=== PATIENT | female | born 1970 | race Caucasian/White ===

== ENCOUNTER 2017-09-27 19:56 | Emergency (ER) | payer MEDICARE, OTHER ==
[~2017-09-27 19:56] MED LIST: ASPI-516 CHEW; HUMALOG SQ; LANTUS2P SQ
[2017-09-27 19:57] VITALS: BP 137/68; PULSE 75; RESP 16; TEMP 97.9; O2SAT 100
[2017-09-27 21:14] VITALS: BP 122/75; PULSE 66; RESP 16; O2SAT 100
[2017-09-27 21:27] VITALS: O2SAT 100
[2017-09-27] MEDS ORDERED: TETANUS/DIPHTHERIA TOXOID ADULT 0.5 ML VIAL IM ONE (21:30)
--- NOTE | 2017-09-27 21:53 | RADRPT ---
EXAM DATE/TIME: 09/27/2017 21:28 [facility] COMPARISON: No previous studies available for comparison. INDICATIONS : Chest pain since yesterday. MEDICAL HISTORY : Cardiovascular disease. Diabetes mellitus type 2. SURGICAL HISTORY : Cholecystectomy. ENCOUNTER: Initial ACUITY: 1 day PAIN SCORE: 2/10 LOCATION: Bilateral chest FINDINGS: A single view of the chest demonstrates the lungs to be symmetrically aerated without evidence of mas s, infiltrate or effusion. Nipple shadows generate nodular densities over each lung base. The cardiom ediastinal contours are unremarkable. Osseous structures are intact. Median sternotomy wires. Old ri ght clavicular fracture. CONCLUSION: Normal examination. Prasanth Cabrera Jr., MD on September 27, 2017 at 21:50 Board Certified Radiologist. This report was verified electronically.
[2017-09-27 21:54] LABS: AUTOMATED NEUTROPHIL # 2.7 TH/MM3 (1.8-7.7); BASOPHIL # 0.1 TH/MM3 (0-0.2); BASOPHIL % 1.1 % (0.0-2.0); EOSINOPHIL # 0.2 TH/MM3 (0-0.4); EOSINOPHIL % 4.3 % (0.0-4.0); HEMATOCRIT 36.3 % (35.0-46.0); HEMO FLAGS DIFF FINAL; LYMPH % 34.6 % (9.0-44.0); LYMPHOCYTE # 1.9 TH/MM3 (1.0-4.8); MEAN CELL VOLUME 91.2 FL (80.0-100.0); MEAN CORPUSCULAR HEMOGLOBIN 30.9 PG (27.0-34.0); MEAN CORPUSCULAR HGB CONC 33.9 % (32.0-36.0); MONO % 10.2 % (0.0-8.0); NEUT % 49.8 % (16.0-70.0); PLATELET COUNT 220 TH/MM3 (150-450); RED BLOOD COUNT 3.98 MIL/MM3 (4.00-5.30); RED CELL DISTRIBUTION WIDTH 12.1 % (11.6-17.2); WHITE BLOOD COUNT 5.5 TH/MM3 (4.0-11.0)
[2017-09-27 21:55] LABS: BLOOD, URINE NEG (NEG); GLUCOSE,URINE NEG (NEG); KETONE, URINE NEG (NEG); NITRITE,URINE NEG (NEG); PH, URINE 7.5 (5.0-8.5); SQUAMOUS EPITHELIAL CELL URINE <1 /hpf (0-5); URINE COLOR LIGHT-YELLOW (YELLW/STRAW)
[2017-09-27 21:56] LABS: COMMENT (UR) CULT NOT INDICATED; CULTURE IF INDICATED CULT NOT INDICATED
--- NOTE | 2017-09-27 22:00 | RADRPT ---
EXAM DATE/TIME: 09/27/2017 21:36 [facility] COMPARISON: No previous studies available for comparison. INDICATIONS : Cut hand two weeks ago and still having pain. MEDICAL HISTORY : Cardiovascular disease. Diabetes mellitus type 2. SURGICAL HISTORY : Cholecystectomy. ENCOUNTER: Initial ACUITY: 2 weeks PAIN SCORE: 6/10 LOCATION: Left Hand FINDINGS: Two view examination of the left hand demonstrates no soft tissue swelling, dislocation, or fracture. The joint spaces are maintained. Bony mineralization is normal. There is a linear metallic struct ure seen associated with the distal radial metaphysis. This has the appearance of a surgical clip. It is along the dorsum. Atherosclerotic changes seen involving the radial artery. No air within the sub cutaneous tissues. CONCLUSION: 1. Metallic surgical clip involving the wrist as detailed above. Otherwise, unremarkable exam. Prasanth Cabrera Jr., MD on September 27, 2017 at 21:58 Board Certified Radiologist. This report was verified electronically.
[2017-09-27 22:05] LABS: APTT (PATIENT) 25.4 SEC (24.3-30.1); PROTHROMBIN TIME - PATIENT 10.9 SEC (9.8-11.6)
--- NOTE | 2017-09-27 22:06 | RADRPT ---
EXAM DATE/TIME: 09/27/2017 21:44 [facility] COMPARISON: No previous studies available for comparison. INDICATIONS : Patient complains of dizziness. RADIATION DOSE: 30.84 CTDIvol (mGy) MEDICAL HISTORY : Diabetes mellitus type 1. SURGICAL HISTORY : CABG ENCOUNTER: Initial ACUITY: 1 day PAIN SCALE: 0/10 LOCATION: cranial TECHNIQUE: Multiple contiguous axial images were obtained of the head. Using automated exposure control and adj ustment of the mA and/or kV according to patient size, radiation dose was kept as low as reasonably a chievable to obtain optimal diagnostic quality images. DICOM format image data is available electro nically for review and comparison. FINDINGS: CEREBRUM: The ventricles are normal for age. No evidence of midline shift, mass lesion, hemorrhage or acute in farction. No extra-axial fluid collections are seen. POSTERIOR FOSSA: The cerebellum and brainstem are intact. The 4th ventricle is midline. The cerebellopontine angle i s unremarkable. EXTRACRANIAL: The visualized portion of the orbits is intact. SKULL: The calvaria is intact. No evidence of skull fracture. CONCLUSION: Normal examination. Prasanth Cabrera Jr., MD on September 27, 2017 at 22:04 Board Certified Radiologist. This report was verified electronically.
--- NOTE | 2017-09-27 22:14 | PD ---
HPI Chief Complaint: Syncope/Near-Syncope Time Seen by Provider: 21:08 Travel History International Travel<30 days: No Contact w/Intl Traveler<30days: No Traveled to known affect area: No History of Present Illness HPI 46-year-old female that presents to the ED for evaluation of possible infection to her left hand after an injury she sustained about a week ago as well as possible dizziness or syncope. Patient is somewhat vague on her description of symptoms but for the most part she seems to be more concerned about the left hand lesion that she's had. Per patient she's been having pain on and off for the past 2 days. She developed a lesion after she accidentally cut it about a week ago. She didn't think much of it. She did was just an abrasion. She is not that his been turning more yellow and maybe a little bit more erythematous. She denies any other trauma. Per patient she has pain on and off. She states that she's been feeling like she has a fever and chills. She denies any chest pain or shortness of breath. Per patient she's been having some dizziness today and she states that she possibly "passed out" on her bed for about a minute. She is not really sure about this. She does have a significant history including CABG and diabetes type 1. Per patient she is concerned about infection causing all of the symptoms. She has no allergies to medication. She states that she's been checking her sugars and they have been a little bit of 300. Denies any nausea or vomiting. States that she still feels dizzy and still has the pain to per patient pain is 7 out of 10. PFSH Past Medical History Cancer: No Cardiovascular Problems: Yes (TRIPLE BYPASS) Coronary Artery Disease: Yes Diabetes: Yes (type 1) Patient Takes Glucophage: No Diminished Hearing: Yes Endocrine: Yes Genitourinary: No Hepatitis: No Hiatal Hernia: No Immune Disorder: No Musculoskeletal: Yes (ARTHRITIS) Neurologic: Yes (DIABETIC NEUROPATHY) Psychiatric: No Reproductive: No Respiratory: No Immunizations Current: Yes Thyroid Disease: No ?: Not Past Surgical History Abdominal Surgery: Yes (LAP [place]) AICD: No Cardiac Surgery: Yes (CABAGX3 (2008)) Cholecystectomy: Yes Coronary Artery Bypass Graft: Yes (3 VESSEL) Ear Surgery: No Endocrine Surgery: No Eye Surgery: Yes (right eye cataract x3) Genitourinary Surgery: No Gynecologic Surgery: No Joint Replacement: No Oral Surgery: No Pacemaker: No Thoracic Surgery: No Other Surgery: Yes (fx lt foot, RT SHOULDER) Social History Alcohol Use: No Tobacco Use: No Substance Use: No Allergies-Medications (Allergen,Severity, Reaction): Coded Allergies: No Known Allergies (Unverified , 09/25/16) Reported Meds & Prescriptions Reported Meds & Active Scripts Active Bactrim DS (Sulfamethoxazole-Trimethoprim) 800-160 Mg Tab 1 Tab PO BID [address] (Diclofenac Sodium) 75 Mg Tabdr 75 Mg PO BID PRN Reported Lantus Inj (Insulin Glargine) 1,000 Unit/10 Ml Vial 15 Units SQ HS Humalog Inj (Insulin Human Lispro) 1,000 Unit/10 Ml Vial 3 Units SQ ACHS Max dose at bedtime:( )units; sugars< 70,(0)units; sugars 150-199,(1)unit; sugars 200-249,(3)units; sugars 250-299,(5)units; sugars 300-349,(7)units; sugars more than 349,(9)units. Aspirin 81 Mg Chew 81 Mg CHEW DAILY Review of Systems Except as stated in HPI: all other systems reviewed are Neg Physical Exam Narrative GENERAL: SKIN: Warm and dry. HEAD: Atraumatic. Normocephalic. EYES: Pupils equal and round. No scleral icterus. No injection or drainage. ENT: No nasal bleeding or discharge. Mucous membranes pink and moist. Tongue is midline. No uvula radiation NECK: Trachea midline. No JVD. CARDIOVASCULAR: Regular rate and rhythm. No murmurs, S3, S4. RESPIRATORY: No accessory muscle use. Clear to auscultation. Breath sounds equal bilaterally. GASTROINTESTINAL: Abdomen soft, non-tender, nondistended. Hepatic and splenic margins not palpable. MUSCULOSKELETAL: Extremities without clubbing, cyanosis, or edema. No obvious deformities. Full range of motion of the upper and lower extremities bilaterally. Patient has a small healing abrasion to the right dorsal second MIP. Slightly tender to touch. Able to move the fingers fully. Good capillary refill. Sensation intact bilaterally. Some yellow crusting noted on top of it but no obvious tendon damage or injury noted. NEUROLOGICAL: Awake and alert. No obvious cranial nerve deficits. Motor grossly within normal limits. Five out of 5 muscle strength in the arms and legs. Normal speech. PSYCHIATRIC: Appropriate mood and affect; insight and judgment normal. Data Data Last Documented VS Vital Signs Date Time Temp Pulse Resp B/P (MAP) Pulse Ox O2 Delivery O2 Flow Rate FiO2 09/27/17 22:50 63 16 134/79 (97) 65 16 132/74 (93) 65 16 116/74 (88) 09/27/17 21:27 100 Room Air 09/27/17 19:57 97.9 Orders Orders Electrocardiogram (09/27/17 21:16) Complete Blood Count With Diff (09/27/17 21:16) Basic Metabolic Panel (Bmp) (09/27/17 21:16) Ckmb (Isoenzyme) Profile (09/27/17 21:16) Troponin I (09/27/17 21:16) Prothrombin Time / Inr (Pt) (09/27/17 21:16) Act Partial Throm Time (Ptt) (09/27/17 21:16) Blood Culture (09/27/17 21:16) Urinalysis - C+S If Indicated (09/27/17 21:16) Magnesium (Mg) (09/27/17 21:16) Thyroid Stimulating Hormone (09/27/17 21:16) Wound Culture And Gram Stain (09/27/17 21:16) Chest, Single Ap (09/27/17 21:16) Ct Brain W/O Iv Contrast(Rout) (09/27/17 21:16) Iv Access Insert/Monitor (09/27/17 21:16) Ecg Monitoring (09/27/17 21:16) Oximetry (09/27/17 21:16) Orthostatic Vital Signs (09/27/17 21:16) Hand, Limited (2vws) (09/27/17 ) Ed Urine Pregnancytest Poc (09/27/17 21:16) Tetanus/Diphtheria Tox Adult (Tetanus/Di (09/27/17 21:30) Acetamin-Hydrocod 325-5 Mg (Trout 5-325 (09/27/17 22:30) Sulfamet-Trimeth Ds 800-160 Mg (Bactrim (09/27/17 22:30) Ed Discharge Order (09/27/17 23:02) Labs Laboratory Tests Test 09/27/17 21:40 White Blood Count 5.5 TH/MM3 Red Blood Count 3.98 MIL/MM3 Hemoglobin 12.3 GM/DL Hematocrit 36.3 % Mean Corpuscular Volume 91.2 FL Mean Corpuscular Hemoglobin 30.9 PG Mean Corpuscular Hemoglobin Concent 33.9 % Red Cell Distribution Width 12.1 % Platelet Count 220 TH/MM3 Mean Platelet Volume 10.3 FL Neutrophils (%) (Auto) 49.8 % Lymphocytes (%) (Auto) 34.6 % Monocytes (%) (Auto) 10.2 % Eosinophils (%) (Auto) 4.3 % Basophils (%) (Auto) 1.1 % Neutrophils # (Auto) 2.7 TH/MM3 Lymphocytes # (Auto) 1.9 TH/MM3 Monocytes # (Auto) 0.6 TH/MM3 Eosinophils # (Auto) 0.2 TH/MM3 Basophils # (Auto) 0.1 TH/MM3 CBC Comment DIFF FINAL Differential Comment Prothrombin Time 10.9 SEC Prothromb Time International Ratio 1.0 RATIO Activated Partial Thromboplast Time 25.4 SEC Urine Color LIGHT-YELLOW Urine Turbidity CLEAR Urine pH 7.5 Urine Specific [place] 1.017 Urine Protein NEG mg/dL Urine Glucose (UA) NEG mg/dL Urine Ketones NEG mg/dL Urine Occult Blood NEG Urine Nitrite NEG Urine Bilirubin NEG Urine Urobilinogen LESS THAN 2.0 MG/DL Urine Leukocyte Esterase NEG Urine RBC LESS THAN 1 /hpf Urine WBC 1 /hpf Urine Squamous Epithelial Cells <1 /hpf Microscopic Urinalysis Comment CULT NOT INDICATED Blood Urea Nitrogen 11 MG/DL Creatinine 0.87 MG/DL Random Glucose 118 MG/DL Calcium Level 8.7 MG/DL Magnesium Level 2.0 MG/DL Sodium Level 138 MEQ/L Potassium Level 4.2 MEQ/L Chloride Level 104 MEQ/L Carbon Dioxide Level 29.6 MEQ/L Anion Gap 4 MEQ/L Estimat Glomerular Filtration Rate 69 ML/MIN Total Creatine Kinase 95 U/L Troponin I LESS THAN 0.02 NG/ML Thyroid Stimulating Hormone 3rd Gen 0.935 uIU/ML MDM Medical Decision Making Medical Screen Exam Complete: Yes Emergency Medical Condition: Yes Medical Record Reviewed: Yes Interpretation(s) Last Impressions Chest X-Ray [id number]/27/[id number] Signed Impressions: Service Date/Time: September 21:28 - CONCLUSION: Normal examination. Prasanth Cabrera Jr., MD Hand X-Ray 09/27/17 0000 Signed Impressions: Service Date/Time: September 21:36 - CONCLUSION: 1. Metallic surgical clip involving the wrist as detailed above. Otherwise, unremarkable exam. Prasanth Cabrera Jr., MD CT of the head was negative CBC & BMP Diagram 09/27/17 21:40 Calcium Level 8.7, Magnesium Level 2.0 Urine negative. Troponin and CK-MB negative. EKG showing sinus rhythm with no sign of acute ischemia or arrhythmia read by me and attending. Differential Diagnosis Syncope versus ACS versus head injury versus CVA versus cellulitis versus DKA versus metabolic abnormality Narrative Course 46-year-old female that presents to the ED for evaluation of possible syncope and left hand infection. Patient was properly examined and was found to have signs and symptoms of unclear etiology. She is somewhat vague with her symptoms and she seems to be more concerned about the hand and the possible syncope. She does have significant history and comorbidities for cardiac syncope. She still states that she feels somewhat dizzy but she is not sure if is related to the hand or not. The hand itself looks well. She does have a little bit of erythema and possible infection but mild compared to what she is describing as her symptoms. Labs and imaging were ordered. Labs and images was and she unremarkable. Unclear etiology of the patient's symptoms. 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 They've been trying to lower her sugars to get better control but she isn't sure this is causing some of the dizziness or lightheadedness. Further questioning she did not have a syncopal episode but she mainly fell asleep on her bed. She states that she's been moving a lot secondary to moving to a new house and she is not sure she was just tired and dozed off. At this time and do not see any need for further evaluation. I did mention to her that she needs to follow with her doctor and monitor her sugars. She was given a prescription for diclofenac sodium and Bactrim to cover for possible infection as well as basic tracing.. Told that if anything worsens she is to come back to the ED. See ED if worsening symptoms. Diagnosis Primary Impression: Impetigo Patient Instructions: General Instructions Additional Instructions: Take medications as prescribed. Follow with PCP. See ED worsening symptoms. Monitor blood sugars. If anything worsens come back to the ED. Med/Other Pt SpecificInfo: Prescription(s) given Scripts Sulfamethoxazole-Trimethoprim (Bactrim DS) 800-160 Mg Tab 1 TAB PO BID for Infection for 10 Days, #20 TAB 0 Refills Prov: Mauro Vinson MD 09/27/[address] (Diclofenac Sodium DR) 75 Mg Tabdr 75 MG PO BID Y for PAIN SCALE 1 TO 10, #20 TAB 0 Refills Prov: Mauro Vinson MD 09/27/17 Disposition: 01 DISCHARGE HOME Condition: Stable Jose Al Sep 27, 2017 22:14
[2017-09-27 22:29] LABS: ANION GAP 4 MEQ/L (5-15); BICARBONATE 29.6 MEQ/L (21.0-32.0); BLOOD UREA NITROGEN 11 MG/DL (7-18); CHLORIDE 104 MEQ/L (98-107); GLOMERULAR FILTRATION RATE 69 ML/MIN (>89); POTASSIUM 4.2 MEQ/L (3.5-5.1); SODIUM (NA) 138 MEQ/L (136-145)
[2017-09-27 22:30] LABS: CREATINE KINASE 95 U/L (26-192)
[2017-09-27] MEDS ORDERED: ACETAMINOPHEN/HYDROcodone 325 MG/5 MG TAB PO ONE (22:30)
[2017-09-27] MEDS ORDERED: SULFAMETHOXAZOLE-TRIMETHOPRIM DS 800-160 MG TAB PO ONE (22:30)
[2017-09-27 22:50] VITALS: BP_SYST 116; BP_SYST 132; BP_SYST 134; BP_DIAS 74; BP_DIAS 79; RESP 16
[2017-09-27] MEDS ORDERED: BACT800T5 PO (23:05)
[2017-09-27] MEDS ORDERED: DICL75TA PO (23:05)
[2017-09-27] MEDS ORDERED: BACI500O9 TOPICAL (23:10)
--- NOTE | 2017-09-28 18:10 | EKG ---
Date Performed: 09/27/2017 Time Performed: 21:15:34 PTAGE: 46 years EKG: Sinus rhythm NORMAL ECG PREVIOUS TRACING : 01/10/2016 11.44 DOCTOR: Joya Antonio Interpretating Date/Time 09/28/2017 18:09:03
== END 2017-09-27 23:20 | disposition home or self-care (01) ==
LOC: NEPE 19:56
DX: L01.00 Impetigo, unspecified (principal); R42 Dizziness and giddiness; R50.9 Fever, unspecified; I25.10 Atherosclerotic heart disease of native coronary artery without angina pectoris; M19.90 Unspecified osteoarthritis, unspecified site; E10.40 Type 1 diabetes mellitus with diabetic neuropathy, unspecified; Z79.4 Long term (current) use of insulin; Z79.899 Other long term (current) drug therapy; Z79.82 Long term (current) use of aspirin
CPT/HCPCS: 70450; 71010; 73120; 80048; 81001; 82550; 83735; 84443; 84484; 84703; 85025; 85610; 85730; 87040; 87070; 87205; 93005; 99285

== ENCOUNTER 2017-12-09 18:18 | Emergency (ER) | payer MEDICARE, OTHER | END 2017-12-09 19:36 | disposition home or self-care (01) | LOC: NEPD 18:18 | DX: S02.5XXA Fracture of tooth (traumatic), initial encounter for closed fracture (principal); I25.10 Atherosclerotic heart disease of native coronary artery without angina pectoris; E10.9 Type 1 diabetes mellitus without complications; M19.90 Unspecified osteoarthritis, unspecified site; E10.40 Type 1 diabetes mellitus with diabetic neuropathy, unspecified; W22.8XXA Striking against or struck by other objects, initial encounter; Z79.4 Long term (current) use of insulin; Z79.82 Long term (current) use of aspirin | CPT/HCPCS: 99283 ==